=== PATIENT | male | born 1960 | race Hispanic/Latino ===

== ENCOUNTER 2021-09-10 09:44 | Inpatient (IN) | payer OTHER ==
[~2021-09-10] VITALS: Ht 182.9 cm; Wt 105.0 kg
[2021-09-10 10:43] LABS: BASOPHILS % (AUTO) 0.6 % (0.0-5.0); EOSINOPHILS % (AUTO) 0.9 % (0.0-8.0); HEMATOCRIT 47.4 % (42-54); LYMPHOCYTES % (AUTO) 8.2 % (21.0-51.0); MEAN CORPUSCULAR HEMOGLOBIN 27.1 pg (27.0-33.0); MEAN CORPUSCULAR HGB CONC 30.8 g/dL (32.0-36.0); MEAN CORPUSCULAR VOLUME 88.1 fL (79-99); NUCLEATED RED BLOOD CELLS 0.5 % (0.0-0.19); PLATELET COUNT (AUTO) 160 K/uL (130-400); RED BLOOD CELL COUNT(AUTO) 5.38 MIL/uL (4.50-6.20); WHITE BLOOD COUNT (AUTO) 6.3 K/uL (4.8-10.8)
[2021-09-10 10:53] LABS: INR 1.27 (0.85-1.15); PROTHROMBIN TIME 13.5 SEC (9.6-11.6)
[2021-09-10 10:55] LABS: PARTIAL THROMBOPLASTIN TIME 28.2 SEC (26.3-35.5)
[2021-09-10 11:17] LABS: ALBUMIN 2.8 g/dL (3.5-5.0); CREATININE 3.4 mg/dL (0.5-1.5); POTASSIUM 4.2 mmol/L (3.5-5.1); TOTAL PROTEIN, SERUM 7.5 g/dL (6.0-8.3)
[2021-09-10 11:19] LABS: B-TYPE NATRIURETIC PEPTIDE 1140 pg/mL (0-100)
[2021-09-10] MEDS: FUROSEMIDE 100MG VIAL IV SCH (11:35)
[2021-09-10] MEDS ORDERED: CEFAZOLIN SODIUM 1 GM VIAL IVP SCH (12:30)
[2021-09-10] MEDS ORDERED: 0.9%NACL 50ML 50 ML IV ONE (13:27)
[2021-09-10 13:43] LABS: APPEARANCE,URINE Cloudy (CLEAR); BILIRUBIN,URINE Negative (NEGATIVE); COLOR,URINE Dark Yellow (YELLOW); GLUCOSE, URINE (UA) TRACE mg/dL (NEGATIVE); KETONES,URINE Negative (NEGATIVE); LEUKOCYTE ESTERASE ,URINE Trace (NEGATIVE); NITRATE,URINE Negative (NEGATIVE); OCCULT BLOOD,URINE Negative (NEGATIVE); PROTEIN,URINE >=1000 mg/dL (NEGATIVE); UROBILINOGEN,URINE 0.2 mg/dL (0.2-1.0)
[2021-09-10 13:44] LABS: CREATININE,URINE RANDOM 86 mg/dL (30-135); SODIUM,URINE RANDOM 63 mmol/l (40-220)
[2021-09-10 13:51] LABS: RBC,URINE 0-1 /HPF (0-1)
[2021-09-10 13:52] LABS: BACTERIA,URINE Rare /HPF (None Seen); SQUAMOUS EPITHELIAL CELL,UR Rare /HPF (0-2)
[2021-09-10 13:53] LABS: ABG BASE EXCESS -3.7 mmol/L (-2.0-3.0); ABG HCO3 21.9 mmol/L (21.0-28.0); ABG OXYGEN SATURATION 91.4 % (95.0-99.0); ABG PCO2 42 mmHg (35-48)
[2021-09-10] MEDS: BUMETANIDE 1MG/4ML VIAL IVP SCH ×2 (14:51→22:09)
[2021-09-10] MEDS ORDERED: METOLAZONE 2.5 MG TABLET PO SCH (15:30)
[2021-09-10] MEDS ORDERED: ACETAMINOPHEN 325 MG TAB PO PRN (15:30)
[2021-09-10] MEDS ORDERED: IPRATROPIUM 0.5 MG/2.5 ML INH IH PRN (15:30)
[2021-09-10 19:54] LABS: CREATININE 3.3 mg/dL (0.5-1.5); MAGNESIUM 2.5 mg/dL (1.80-2.40); PHOSPHORUS 5.4 mg/dL (2.5-4.9); POTASSIUM 4.4 mmol/L (3.5-5.1)
[2021-09-10 21:20] VITALS: BP 143/97
[2021-09-10] MEDS: CEFTRIAXONE 1G VIAL IVP SCH (21:49)
[2021-09-10] MEDS: CARVEDILOL 3.125 MG TABLET PO SCH (21:50)
[2021-09-11] VITALS: BP 161/99
[2021-09-11 04:00] VITALS: BP 160/97
[2021-09-11] MEDS: BUMETANIDE 1MG/4ML VIAL IVP SCH ×3 (05:41→22:06)
[2021-09-11 08:00] VITALS: BP 156/97
[2021-09-11] MEDS: CARVEDILOL 3.125 MG TABLET PO SCH ×2 (08:52→20:50)
[2021-09-11] MEDS ORDERED: ASPIRIN 81 MG EC TAB PO SCH (09:00)
[2021-09-11 09:18] LABS: ABG BASE EXCESS -1.7 mmol/L (-2.0-3.0); ABG HCO3 22.6 mmol/L (21.0-28.0); ABG OXYGEN SATURATION 93.6 % (95.0-99.0); ABG PCO2 37 mmHg (35-48)
[2021-09-11] MEDS: FUROSEMIDE 100MG VIAL IV SCH (10:30)
[2021-09-11 12:00] VITALS: BP 150/72
[2021-09-11] MEDS: MUPIROCIN OINTMENT 22 GM TUBE TP SCH (14:00)
[2021-09-11] MEDS: PANTOPRAZOLE 40 MG TAB DR PO SCH (14:04)
[2021-09-11 16:00] VITALS: BP 165/90
[2021-09-11 19:32] LABS: PROTEIN,URINE RANDOM 499.9 mg/dL (0-11.9)
[2021-09-11 20:00] VITALS: BP 163/87
[2021-09-11] MEDS: CEFTRIAXONE 1G VIAL IVP SCH (20:50)
[2021-09-11] MEDS: TAMSULOSIN HCL 0.4 MG CAP.ER.24H PO SCH (22:09)
[2021-09-12 00:06] VITALS: BP 142/95
[2021-09-12 04:28] VITALS: BP 133/90
[2021-09-12 04:30] LABS: INR 1.33 (0.85-1.15); PROTHROMBIN TIME 14.1 SEC (9.6-11.6)
[2021-09-12] MEDS: BUMETANIDE 1MG/4ML VIAL IVP SCH ×3 (05:46→22:00)
[2021-09-12 07:40] VITALS: BP 152/96
[2021-09-12] MEDS: CARVEDILOL 3.125 MG TABLET PO SCH ×2 (09:34→21:05)
[2021-09-12] MEDS: PANTOPRAZOLE 40 MG TAB DR PO SCH (09:34)
[2021-09-12] MEDS: MUPIROCIN OINTMENT 22 GM TUBE TP SCH (09:35)
[2021-09-12 11:40] VITALS: BP 126/87
[2021-09-12 15:30] VITALS: BP 167/99
[2021-09-12] MEDS ORDERED: LIDOCAINE HCL-MPF 1% 2ML VIAL ONE (15:59)
[2021-09-12 20:00] VITALS: BP 136/79
[2021-09-12] MEDS: TAMSULOSIN HCL 0.4 MG CAP.ER.24H PO SCH (21:05)
[2021-09-12] MEDS: CEFTRIAXONE 1G VIAL IVP SCH (21:05)
[2021-09-13] VITALS (7 sets, daily range): BP systolic 130–141; BP diastolic 77–97
[2021-09-13 04:17] LABS: HEMATOCRIT 42.4 % (42-54); MEAN CORPUSCULAR HEMOGLOBIN 27.1 pg (27.0-33.0); MEAN CORPUSCULAR HGB CONC 31.6 g/dL (32.0-36.0); MEAN CORPUSCULAR VOLUME 85.8 fL (79-99); RED BLOOD CELL COUNT(AUTO) 4.94 MIL/uL (4.50-6.20); RED CELL DISTRIBUTION WIDTH 16.2 % (11.0-15.5); WHITE BLOOD COUNT (AUTO) 6.2 K/uL (4.8-10.8)
[2021-09-13 04:31] LABS: ALBUMIN 2.5 g/dL (3.5-5.0); BILIRUBIN,TOTAL 0.7 mg/dL (0.2-1.0); CREATININE 3.6 mg/dL (0.5-1.5); MAGNESIUM 2.2 mg/dL (1.80-2.40); PHOSPHORUS 5.4 mg/dL (2.5-4.9); POTASSIUM 4.1 mmol/L (3.5-5.1); TOTAL PROTEIN, SERUM 6.9 g/dL (6.0-8.3)
[2021-09-13] MEDS: BUMETANIDE 1MG/4ML VIAL IVP SCH ×3 (06:20→20:43)
[2021-09-13] MEDS: PANTOPRAZOLE 40 MG TAB DR PO SCH (09:02)
[2021-09-13] MEDS: CARVEDILOL 3.125 MG TABLET PO SCH ×2 (09:02→20:45)
[2021-09-13] MEDS: MUPIROCIN OINTMENT 22 GM TUBE TP SCH (09:06)
[2021-09-13] MEDS ORDERED: TRAZODONE HCL 50 MG TAB PO SCH (20:30)
[2021-09-13] MEDS: CEFTRIAXONE 1G VIAL IVP SCH (20:43)
[2021-09-13] MEDS: TAMSULOSIN HCL 0.4 MG CAP.ER.24H PO SCH (20:43)
[2021-09-14 03:29] VITALS: BP 130/85
[2021-09-14 04:11] LABS: HEMATOCRIT 40.5 % (42-54); MEAN CORPUSCULAR HEMOGLOBIN 27.1 pg (27.0-33.0); MEAN CORPUSCULAR HGB CONC 31.1 g/dL (32.0-36.0); MEAN CORPUSCULAR VOLUME 87.1 fL (79-99); NUCLEATED RED BLOOD CELLS 0.3 % (0.0-0.19); RED BLOOD CELL COUNT(AUTO) 4.65 MIL/uL (4.50-6.20); RED CELL DISTRIBUTION WIDTH 16.2 % (11.0-15.5); WHITE BLOOD COUNT (AUTO) 5.9 K/uL (4.8-10.8)
[2021-09-14 04:18] LABS: CREATININE 3.6 mg/dL (0.5-1.5); PHOSPHORUS 5.2 mg/dL (2.5-4.9); POTASSIUM 3.7 mmol/L (3.5-5.1)
[2021-09-14] MEDS: BUMETANIDE 1MG/4ML VIAL IVP SCH ×3 (06:19→20:23)
[2021-09-14 07:52] VITALS: BP 137/91
[2021-09-14] MEDS: PANTOPRAZOLE 40 MG TAB DR PO SCH (08:32)
[2021-09-14] MEDS: CARVEDILOL 3.125 MG TABLET PO SCH ×2 (08:33→20:24)
[2021-09-14] MEDS: MUPIROCIN OINTMENT 22 GM TUBE TP SCH (09:21)
[2021-09-14 11:20] VITALS: BP 136/91
[2021-09-14] MEDS ORDERED: LACTULOSE 20 GM/30 ML UDCUP PO ONE (16:00)
[2021-09-14 16:10] VITALS: BP 125/87
[2021-09-14] MEDS: LUBIPROSTONE 24 MCG CAP PO SCH (17:44)
[2021-09-14 19:30] VITALS: BP 121/91
[2021-09-14] MEDS: CEFTRIAXONE 1G VIAL IVP SCH (20:23)
[2021-09-14] MEDS: ZOLPIDEM TARTRATE 5 MG TAB PO SCH (20:24)
[2021-09-14] MEDS: TAMSULOSIN HCL 0.4 MG CAP.ER.24H PO SCH (20:24)
[2021-09-14] MEDS: LACTULOSE 20 GM/30 ML UDCUP PO SCH (20:30)
[2021-09-14 23:36] VITALS: BP 112/75
[2021-09-15] VITALS (15 sets, daily range): BP systolic 115–140; BP diastolic 74–93
[2021-09-15 04:45] LABS: HEMATOCRIT 40.7 % (42-54); MEAN CORPUSCULAR HEMOGLOBIN 27.5 pg (27.0-33.0); MEAN CORPUSCULAR HGB CONC 32.2 g/dL (32.0-36.0); MEAN CORPUSCULAR VOLUME 85.3 fL (79-99); PLATELET COUNT (AUTO) 110 K/uL (130-400); RED BLOOD CELL COUNT(AUTO) 4.77 MIL/uL (4.50-6.20)
[2021-09-15 04:57] LABS: INR 1.27 (0.85-1.15); PROTHROMBIN TIME 13.5 SEC (9.6-11.6)
[2021-09-15 04:58] LABS: PARTIAL THROMBOPLASTIN TIME 32.4 SEC (26.3-35.5)
[2021-09-15 05:08] LABS: ALBUMIN 2.5 g/dL (3.5-5.0); BILIRUBIN,TOTAL 0.7 mg/dL (0.2-1.0); CREATININE 3.6 mg/dL (0.5-1.5); MAGNESIUM 1.9 mg/dL (1.80-2.40); PHOSPHORUS 4.6 mg/dL (2.5-4.9); POTASSIUM 3.8 mmol/L (3.5-5.1); TOTAL PROTEIN, SERUM 6.9 g/dL (6.0-8.3)
[2021-09-15 05:27] LABS: BAND NEUTROPHILS % (MANUAL) 1 % (0-2); BASOPHILS % (MANUAL) 2 % (0-2); EOSINOPHILS % (MANUAL) 1 % (1-6); LYMPHOCYTES % (MANUAL) 16 % (22-44); MAN.DIFF COMMENT-IMPRESSION MANUAL DIFFERENTIAL; MONOCYTES % (MANUAL) 10 % (2-9); PLATELET MORPHOLOGY COMMENT ADEQUATE; SEGMENTED NEUTROPHILS % 70 % (40-70)
[2021-09-15] MEDS: LACTULOSE 20 GM/30 ML UDCUP PO SCH (06:00)
[2021-09-15] MEDS: BUMETANIDE 1MG/4ML VIAL IVP SCH ×3 (06:28→21:12)
[2021-09-15] MEDS ORDERED: LACTULOSE 20 GM/30 ML UDCUP PO PRN (07:30)
[2021-09-15] MEDS: LUBIPROSTONE 24 MCG CAP PO SCH (08:00)
[2021-09-15] MEDS ORDERED: LIDOCAINE HCL MPF 1% 5ML VIAL ONE (08:38)
[2021-09-15] MEDS: PANTOPRAZOLE 40 MG TAB DR PO SCH (08:51)
[2021-09-15] MEDS: MUPIROCIN OINTMENT 22 GM TUBE TP SCH (08:53)
[2021-09-15] MEDS: CARVEDILOL 3.125 MG TABLET PO SCH ×2 (08:53→20:14)
[2021-09-15 15:50] LABS: APPEARANCE BODY FLUID BLOODY (CLEAR); COLOR,BODY FLUID RED (LT YELLOW); SPECIMENTYPE,BODY FLUID PLEURAL
[2021-09-15 15:51] LABS: BODY FLUID WBC 205 /cu. mm.; TOTAL VOLUME,BODY FLUID 1500 mL
[2021-09-15 15:52] LABS: BODY FLUID RBC 140625 /cu. mm.
[2021-09-15 15:56] LABS: BF LYMPHOCYTE 8 %; BF MONOCYTE 3 %
[2021-09-15] MEDS: TAMSULOSIN HCL 0.4 MG CAP.ER.24H PO SCH (20:14)
[2021-09-15] MEDS: CEFTRIAXONE 1G VIAL IVP SCH (20:14)
[2021-09-15] MEDS: FAMOTIDINE 20MG TAB PO SCH (20:14)
[2021-09-15] MEDS: ZOLPIDEM TARTRATE 5 MG TAB PO SCH (21:12)
[2021-09-16] VITALS: BP 135/90
[2021-09-16 04:00] VITALS: BP 135/90
[2021-09-16] MEDS: BUMETANIDE 1MG/4ML VIAL IVP SCH (05:56)
[2021-09-16 08:03] VITALS: BP 142/90
[2021-09-16] MEDS: FAMOTIDINE 20MG TAB PO SCH ×2 (08:48→20:26)
[2021-09-16] MEDS: CARVEDILOL 3.125 MG TABLET PO SCH ×2 (08:48→20:26)
[2021-09-16] MEDS: MUPIROCIN OINTMENT 22 GM TUBE TP SCH (08:55)
[2021-09-16 11:36] VITALS: BP 135/90
[2021-09-16 16:31] VITALS: BP 140/94
[2021-09-16 20:00] VITALS: BP 146/98
[2021-09-16] MEDS: TAMSULOSIN HCL 0.4 MG CAP.ER.24H PO SCH (20:26)
[2021-09-16] MEDS ORDERED: BUMETANIDE 1MG/4ML VIAL IVP SCH (21:00)
[2021-09-17] VITALS: BP 121/83
[2021-09-17 04:00] VITALS: BP 135/89
[2021-09-17 04:13] LABS: HEMATOCRIT 38.5 % (42-54); MEAN CORPUSCULAR HEMOGLOBIN 27.4 pg (27.0-33.0); MEAN CORPUSCULAR HGB CONC 32.2 g/dL (32.0-36.0); RED BLOOD CELL COUNT(AUTO) 4.53 MIL/uL (4.50-6.20); RED CELL DISTRIBUTION WIDTH 15.7 % (11.0-15.5); WHITE BLOOD COUNT (AUTO) 5.9 K/uL (4.8-10.8)
[2021-09-17 04:45] LABS: CREATININE 3.3 mg/dL (0.5-1.5); MAGNESIUM 1.7 mg/dL (1.80-2.40); PHOSPHORUS 4.1 mg/dL (2.5-4.9); POTASSIUM 3.1 mmol/L (3.5-5.1)
[2021-09-17 07:25] VITALS: BP 119/74
[2021-09-17] MEDS ORDERED: FUROSEMIDE 80 MG TABLET PO SCH (09:00)
[2021-09-17] MEDS: CARVEDILOL 3.125 MG TABLET PO SCH (09:07)
[2021-09-17] MEDS: MUPIROCIN OINTMENT 22 GM TUBE TP SCH (09:08)
[2021-09-17] MEDS: FAMOTIDINE 20MG TAB PO SCH (09:08)
[2021-09-17 11:25] VITALS: BP 130/82
[2021-09-17] MEDS ORDERED: FURO80TA3 PO (13:34)
[2021-09-17] MEDS ORDERED: MUPI22OI2 TP (13:34)
[2021-09-17] MEDS ORDERED: TAMS-1 PO (13:34)
[2021-09-17] MEDS ORDERED: CARV3.1262 PO (13:34)
[2021-09-17 16:20] VITALS: BP 131/88
[2021-09-17 16:53] LABS: HEPATITIS A IGM ANTIBODY Non-Reactive (Negative); HEPATITIS B CORE IGM ANTIBODY Non-Reactive (Negative); HEPATITIS C ANTIBODY Non-Reactive (NEGATIVE)
[2021-09-17 17:01] LABS: HEPATITIS B SURFACE ANTIGEN Non-Reactive (Negative)
== END 2021-09-17 18:47 | DRG 291 ==
LOC: EDH 09:44 → EDHIP 09:45 → 4DH 20:56
PROVIDERS: ADMIT Internal Medicine; ATTEND Internal Medicine
PROC: 0W993ZZ Drainage of Right Pleural Cavity, Percutaneous Approach (ICD-10-PCS; 2021-09-12)
PROC: 0W993ZZ Drainage of Right Pleural Cavity, Percutaneous Approach (ICD-10-PCS; principal; 2021-09-15)
DX: I13.0 Hypertensive heart and chronic kidney disease with heart failure and stage 1 through stage 4 chronic kidney disease, or unspecified chronic kidney disease (principal); I50.23 Acute on chronic systolic (congestive) heart failure; J96.01 Acute respiratory failure with hypoxia; E43 Unspecified severe protein-calorie malnutrition; N17.9 Acute kidney failure, unspecified; N18.4 Chronic kidney disease, stage 4 (severe); J91.8 Pleural effusion in other conditions classified elsewhere; Z20.822 Contact with and (suspected) exposure to COVID-19; I42.9 Cardiomyopathy, unspecified; I48.0 Paroxysmal atrial fibrillation; E11.22 Type 2 diabetes mellitus with diabetic chronic kidney disease; E78.5 Hyperlipidemia, unspecified; E66.9 Obesity, unspecified; E78.00 Pure hypercholesterolemia, unspecified; R31.9 Hematuria, unspecified; I25.10 Atherosclerotic heart disease of native coronary artery without angina pectoris; E11.51 Type 2 diabetes mellitus with diabetic peripheral angiopathy without gangrene; N13.9 Obstructive and reflux uropathy, unspecified; E11.21 Type 2 diabetes mellitus with diabetic nephropathy; S80.819A Abrasion, unspecified lower leg, initial encounter; X58.XXXA Exposure to other specified factors, initial encounter; Z79.899 Other long term (current) drug therapy; Z95.5 Presence of coronary angioplasty implant and graft; Z86.73 Personal history of transient ischemic attack (TIA), and cerebral infarction without residual deficits; R54 Age-related physical debility; Z99.3 Dependence on wheelchair; Z68.35 Body mass index [BMI] 35.0-35.9, adult; Z91.19 Patient's noncompliance with other medical treatment and regimen; Y93.89 Activity, other specified; Y92.89 Other specified places as the place of occurrence of the external cause; Y99.8 Other external cause status
CPT/HCPCS: 32555; 36415; 36600; 70450; 71045; 71250; 74176; 76700; 76770; 78582; 80048; 80053; 80061; 80074; 81001; 82435; 82570; 82803; 82945; 82947; 82948; 83605; 83615; 83735; 83880; 83986; 84100; 84132; 84145; 84156; 84157; 84295; 84300; 84484; 84540; 85018; 85025; 85027; 85610; 85651; 85730; 86038; 86140; 86160; 86215; 86235; 87040; 87071; 87088; 87116; 87205; 87206; 87635; 87804; 89051; 92610; 93005; 93306; 93356; 93970; 97039; A9540; A9558; C1729; G0378; J0690; J0696; J1940; J3490

== ENCOUNTER → 2021-10-14 | Outpatient (CLI) | payer OTHER ==
[~2021-10-14] MED LIST: CARV3.1262 PO; FURO80TA3 PO; LIDOCAINE HCL 4% LTA SOL 4 ML VIAL TP ONE; MUPI22OI2 TP; TAMS-1 PO
== END | disposition home or self-care (01) ==
LOC: WHH 08:09
PROVIDERS: ATTEND Family Medicine
DX: E11.621 Type 2 diabetes mellitus with foot ulcer (principal); L97.515 Non-pressure chronic ulcer of other part of right foot with muscle involvement without evidence of necrosis; S81.802A Unspecified open wound, left lower leg, initial encounter; S81.801A Unspecified open wound, right lower leg, initial encounter; S81.002A Unspecified open wound, left knee, initial encounter; S91.101A Unspecified open wound of right great toe without damage to nail, initial encounter; E11.40 Type 2 diabetes mellitus with diabetic neuropathy, unspecified; E11.51 Type 2 diabetes mellitus with diabetic peripheral angiopathy without gangrene; E11.22 Type 2 diabetes mellitus with diabetic chronic kidney disease; I13.0 Hypertensive heart and chronic kidney disease with heart failure and stage 1 through stage 4 chronic kidney disease, or unspecified chronic kidney disease; N18.4 Chronic kidney disease, stage 4 (severe); I50.22 Chronic systolic (congestive) heart failure; E78.5 Hyperlipidemia, unspecified; I25.10 Atherosclerotic heart disease of native coronary artery without angina pectoris; E78.00 Pure hypercholesterolemia, unspecified; E66.9 Obesity, unspecified; Z68.27 Body mass index [BMI] 27.0-27.9, adult; Z86.73 Personal history of transient ischemic attack (TIA), and cerebral infarction without residual deficits; Z95.5 Presence of coronary angioplasty implant and graft; Z79.899 Other long term (current) drug therapy; W19.XXXA Unspecified fall, initial encounter; Y93.89 Activity, other specified; Y92.89 Other specified places as the place of occurrence of the external cause; Y99.8 Other external cause status
CPT/HCPCS: 11042; A4450; A6209

== ENCOUNTER → 2021-10-21 | Outpatient (CLI) | payer OTHER | END | disposition home or self-care (01) | LOC: WHH 09:36 | PROVIDERS: ATTEND Family Medicine | DX: E11.621 Type 2 diabetes mellitus with foot ulcer (principal); L97.515 Non-pressure chronic ulcer of other part of right foot with muscle involvement without evidence of necrosis; S81.802D Unspecified open wound, left lower leg, subsequent encounter; S81.801D Unspecified open wound, right lower leg, subsequent encounter; S81.002D Unspecified open wound, left knee, subsequent encounter; S91.101D Unspecified open wound of right great toe without damage to nail, subsequent encounter; E11.40 Type 2 diabetes mellitus with diabetic neuropathy, unspecified; E11.51 Type 2 diabetes mellitus with diabetic peripheral angiopathy without gangrene; E11.22 Type 2 diabetes mellitus with diabetic chronic kidney disease; I13.0 Hypertensive heart and chronic kidney disease with heart failure and stage 1 through stage 4 chronic kidney disease, or unspecified chronic kidney disease; N18.4 Chronic kidney disease, stage 4 (severe); I50.22 Chronic systolic (congestive) heart failure; E78.5 Hyperlipidemia, unspecified; I25.10 Atherosclerotic heart disease of native coronary artery without angina pectoris; E78.00 Pure hypercholesterolemia, unspecified; E66.9 Obesity, unspecified; Z68.27 Body mass index [BMI] 27.0-27.9, adult; Z86.73 Personal history of transient ischemic attack (TIA), and cerebral infarction without residual deficits; Z95.5 Presence of coronary angioplasty implant and graft; Z79.899 Other long term (current) drug therapy; W19.XXXD Unspecified fall, subsequent encounter | CPT/HCPCS: 11042 ==

== ENCOUNTER 2021-12-29 00:28 | Inpatient (IN) | payer OTHER ==
[~2021-12-29] VITALS: Ht 182.9 cm; Wt 105.1 kg
[~2021-12-29 00:28] MED LIST changes: -LIDOCAINE HCL 4% LTA SOL 4 ML VIAL TP ONE
[2021-12-29 01:03] LABS: BASOPHILS % (AUTO) 1.2 % (0.0-5.0); EOSINOPHILS % (AUTO) 2.6 % (0.0-8.0); HEMATOCRIT 47.1 % (42-54); LYMPHOCYTES % (AUTO) 15.4 % (21.0-51.0); MEAN CORPUSCULAR HEMOGLOBIN 26.3 pg (27.0-33.0); MEAN CORPUSCULAR HGB CONC 32.1 g/dL (32.0-36.0); MEAN CORPUSCULAR VOLUME 81.9 fL (79-99); MONOCYTES % (AUTO) 11.6 % (3.0-13.0); NEUTROPHILS % (AUTO) 68.9 % (40.0-77.0); PLATELET COUNT (AUTO) 180 K/uL (130-400); RED BLOOD CELL COUNT(AUTO) 5.75 MIL/uL (4.50-6.20); RED CELL DISTRIBUTION WIDTH 20.4 % (11.0-15.5); WHITE BLOOD COUNT (AUTO) 7.7 K/uL (4.8-10.8)
[2021-12-29 01:11] LABS: CREATININE 2.4 mg/dL (0.5-1.5); POTASSIUM 3.5 mmol/L (3.5-5.1)
[2021-12-29 01:16] LABS: ALBUMIN 2.4 g/dL (3.5-5.0); TOTAL PROTEIN, SERUM 6.9 g/dL (6.0-8.3)
[2021-12-29] MEDS ORDERED: FUROSEMIDE 40MG VIAL IV ONE (01:30)
[2021-12-29 02:16] LABS: B-TYPE NATRIURETIC PEPTIDE 2580 pg/mL (0-100)
[2021-12-29] MEDS ORDERED: ACETAMINOPHEN 325 MG TAB PO PRN ×2 (02:30)
[2021-12-29] MEDS ORDERED: DIPHENHYDRAMINE HCL 25 MG CAPSULE PO PRN (02:30)
[2021-12-29] MEDS ORDERED: ONDANSETRON 4MG INJ IV PRN (02:30)
[2021-12-29] MEDS ORDERED: LACTULOSE 20 GM/30 ML UDCUP PO PRN (02:30)
[2021-12-29] MEDS ORDERED: MAG/ALUM/SIMETH 30 ML UDCUP PO PRN (02:30)
[2021-12-29] MEDS ORDERED: DiphenhydrAMINE HCL 50 MG/ML VIAL IV PRN (02:30)
[2021-12-29] MEDS ORDERED: HYDRALAZINE 20MG/ML VIAL IV PRN (02:30)
[2021-12-29] MEDS ORDERED: HYDROCODONE/ACETAMINOPHEN 5/325 MG TAB PO PRN ×2 (02:30→10:00)
[2021-12-29] MEDS ORDERED: MORPHINE 4 MG SYG IV PRN (02:30)
[2021-12-29 02:52] LABS: CHOLESTEROL 108 mg/dL (<200); HDL CHOLESTEROL 34 mg/dL (29-71); LDL DIRECT 57 mg/dL (0-99); TRIGLYCERIDES 85 mg/dL (30-200)
[2021-12-29 02:57] LABS: HEMOGLOBIN A1C 6.9 % (4.0-6.0)
[2021-12-29 03:16] LABS: APPEARANCE,URINE CLEAR (CLEAR); BILIRUBIN,URINE SMALL (NEGATIVE); COLOR,URINE YELLOW (YELLOW); GLUCOSE, URINE (UA) 250 mg/dL (NEGATIVE); KETONES,URINE NEGATIVE (NEGATIVE); LEUKOCYTE ESTERASE ,URINE NEGATIVE (NEGATIVE); NITRATE,URINE NEGATIVE (NEGATIVE); OCCULT BLOOD,URINE MODERATE (NEGATIVE); PH,URINE 5.5 (5.0-8.0); PROTEIN,URINE >=300 mg/dL (NEGATIVE); UROBILINOGEN,URINE 0.2 mg/dL (0.2-1.0)
[2021-12-29 03:25] LABS: BACTERIA,URINE None Seen /HPF (None Seen); MUCUS,URINE Rare LPF (None Seen); RBC,URINE 0-1 /HPF (0-1); SQUAMOUS EPITHELIAL CELL,UR Rare /HPF (0-2); WBC,URINE 0-1 /HPF (0-1); YEAST,URINE BUDDING None Seen /HPF (None Seen)
[2021-12-29] MEDS ORDERED: TETANUS/DIPHTHERIA TOXOID [ADULT] 0.5 ML VIAL IM ONE (03:30)
[2021-12-29 03:32] VITALS: BP 144/102
[2021-12-29] MEDS: INSULIN HUMULIN R 100 UNIT/ML 3ML SQ SCH ×4 (06:24→21:00)
[2021-12-29 07:58] VITALS: BP 156/110
[2021-12-29] MEDS ORDERED: CARVEDILOL 3.125 MG TABLET PO SCH (09:00)
[2021-12-29] MEDS ORDERED: ENOXAPARIN SODIUM 30 MG/0.3 ML SQ SCH (09:00)
[2021-12-29] MEDS: FUROSEMIDE 20MG VIAL IV SCH ×2 (09:05→21:19)
[2021-12-29] MEDS: FAMOTIDINE 20MG TAB PO SCH ×2 (09:05→21:18)
[2021-12-29] MEDS: ASPIRIN 81 MG EC TAB PO SCH (09:07)
[2021-12-29] MEDS ORDERED: TRAMADOL HCL 50 MG TABLET PO PRN ×2 (10:00)
[2021-12-29] MEDS ORDERED: LIDOCAINE 5% TOPICAL PATCH TP SCH (11:00)
[2021-12-29 11:03] VITALS: BP 139/76
[2021-12-29] MEDS ORDERED: NIFEDIPINE ER 30 MG TAB PO SCH (11:30)
[2021-12-29] MEDS: MUPIROCIN OINTMENT 22 GM TUBE TP SCH ×3 (15:48→21:00)
[2021-12-29] MEDS: HONEY 1 APPL/ML TUBE TP SCH (15:48)
[2021-12-29 16:07] VITALS: BP 140/93
[2021-12-29 20:00] VITALS: BP 144/95
[2021-12-29] MEDS: CARVEDILOL 6.25 MG TABLET PO SCH (21:18)
[2021-12-29] MEDS: APIXABAN 5 MG TABLET PO SCH (21:19)
[2021-12-30] VITALS: BP 104/63
[2021-12-30 01:00] LABS: APPEARANCE,URINE CLEAR (CLEAR); BILIRUBIN,URINE NEGATIVE (NEGATIVE); COLOR,URINE YELLOW (YELLOW); GLUCOSE, URINE (UA) 250 mg/dL (NEGATIVE); KETONES,URINE NEGATIVE (NEGATIVE); LEUKOCYTE ESTERASE ,URINE NEGATIVE (NEGATIVE); NITRATE,URINE NEGATIVE (NEGATIVE); OCCULT BLOOD,URINE SMALL (NEGATIVE); PROTEIN,URINE >=300 mg/dL (NEGATIVE); UROBILINOGEN,URINE 0.2 mg/dL (0.2-1.0)
[2021-12-30 01:07] LABS: BACTERIA,URINE Rare /HPF (None Seen); SQUAMOUS EPITHELIAL CELL,UR Moderate /HPF (0-2); WBC,URINE 0-1 /HPF (0-1)
[2021-12-30 04:00] VITALS: BP 105/65
[2021-12-30 05:41] LABS: HEMATOCRIT 40.7 % (42-54); MEAN CORPUSCULAR HEMOGLOBIN 26.5 pg (27.0-33.0); MEAN CORPUSCULAR HGB CONC 32.4 g/dL (32.0-36.0); MEAN CORPUSCULAR VOLUME 81.6 fL (79-99); PLATELET COUNT (AUTO) 168 K/uL (130-400); RED BLOOD CELL COUNT(AUTO) 4.99 MIL/uL (4.50-6.20); RED CELL DISTRIBUTION WIDTH 19.7 % (11.0-15.5); WHITE BLOOD COUNT (AUTO) 6.4 K/uL (4.8-10.8)
[2021-12-30 06:07] LABS: ASPARTATE AMINOTRANSFERASE 11 U/L (10-37); CARBON DIOXIDE 24 mmol/L (21-32); CHLORIDE 108 mmol/L (101-111); CREATININE 2.8 mg/dL (0.5-1.5); GLOMERULAR FILTR. RATE CALC 25 mL/min (>60); GLUCOSE,RANDOM 83 mg/dL (70-105); PHOSPHORUS 3.7 mg/dL (2.5-4.9); POTASSIUM 3.4 mmol/L (3.5-5.1); SODIUM SERUM 142 mmol/L (136-145); TOTAL PROTEIN, SERUM 6.2 g/dL (6.0-8.3); UREA NITROGEN, BLOOD 30 mg/dL (7-18)
[2021-12-30 06:19] LABS: ALANINE AMINOTRANSFERASE < 6 U/L (12-78)
[2021-12-30] MEDS: INSULIN HUMULIN R 100 UNIT/ML 3ML SQ SCH ×4 (06:30→21:00)
[2021-12-30 07:35] LABS: BAND NEUTROPHILS % (MANUAL) 1 % (0-2); BASOPHILS % (MANUAL) 5 % (0-2); EOSINOPHILS % (MANUAL) 1 % (1-6); LYMPHOCYTES % (MANUAL) 17 % (22-44); MONOCYTES % (MANUAL) 6 % (2-9); SEGMENTED NEUTROPHILS % 70 % (40-70)
[2021-12-30 07:36] LABS: MAN.DIFF COMMENT-IMPRESSION MANUAL DIFFERENTIAL
[2021-12-30 07:37] LABS: PLATELET MORPHOLOGY COMMENT ADEQUATE
[2021-12-30 08:00] VITALS: BP 105/68
[2021-12-30] MEDS: ASPIRIN 81 MG EC TAB PO SCH (08:35)
[2021-12-30] MEDS: FAMOTIDINE 20MG TAB PO SCH ×2 (08:35→21:18)
[2021-12-30] MEDS: APIXABAN 5 MG TABLET PO SCH ×2 (08:36→21:18)
[2021-12-30] MEDS: MUPIROCIN OINTMENT 22 GM TUBE TP SCH ×3 (08:37→21:21)
[2021-12-30] MEDS: HONEY 1 APPL/ML TUBE TP SCH (08:37)
[2021-12-30] MEDS: FINASTERIDE 5 MG TABLET PO SCH (08:37)
[2021-12-30] MEDS: CARVEDILOL 6.25 MG TABLET PO SCH ×2 (08:37→21:19)
[2021-12-30] MEDS ORDERED: NIFEDIPINE ER 30 MG TAB PO SCH (09:00)
[2021-12-30] MEDS ORDERED: ATOR40TA69 PO (11:03)
[2021-12-30 11:41] VITALS: BP 106/75
[2021-12-30 16:00] VITALS: BP 113/80
[2021-12-30 20:00] VITALS: BP 113/80
[2021-12-30] MEDS: TAMSULOSIN HCL 0.4 MG CAP.ER.24H PO SCH (21:19)
[2021-12-31] VITALS (7 sets, daily range): BP systolic 108–141; BP diastolic 71–97
[2021-12-31 04:25] LABS: BASOPHILS % (AUTO) 1.3 % (0.0-5.0); EOSINOPHILS % (AUTO) 4.3 % (0.0-8.0); HEMATOCRIT 41.2 % (42-54); LYMPHOCYTES % (AUTO) 16.3 % (21.0-51.0); MEAN CORPUSCULAR HEMOGLOBIN 26.5 pg (27.0-33.0); MEAN CORPUSCULAR HGB CONC 32.5 g/dL (32.0-36.0); MEAN CORPUSCULAR VOLUME 81.6 fL (79-99); MONOCYTES % (AUTO) 12.6 % (3.0-13.0); NEUTROPHILS % (AUTO) 65.1 % (40.0-77.0); PLATELET COUNT (AUTO) 164 K/uL (130-400); RED BLOOD CELL COUNT(AUTO) 5.05 MIL/uL (4.50-6.20); RED CELL DISTRIBUTION WIDTH 20.1 % (11.0-15.5); WHITE BLOOD COUNT (AUTO) 6.7 K/uL (4.8-10.8)
[2021-12-31 04:36] LABS: CREATININE 2.9 mg/dL (0.5-1.5); MAGNESIUM 1.9 mg/dL (1.80-2.40); POTASSIUM 3.3 mmol/L (3.5-5.1)
[2021-12-31] MEDS: INSULIN HUMULIN R 100 UNIT/ML 3ML SQ SCH ×4 (07:30→21:52)
[2021-12-31] MEDS ORDERED: APIX5TAB PO (09:23)
[2021-12-31] MEDS ORDERED: TAMS-1 PO (09:23)
[2021-12-31] MEDS ORDERED: CARV3.1262 PO (09:23)
[2021-12-31] MEDS ORDERED: FURO40TA5 PO (09:23)
[2021-12-31] MEDS ORDERED: AEC81 PO (09:23)
[2021-12-31] MEDS ORDERED: FINA5TAB2 PO (09:23)
[2021-12-31] MEDS: APIXABAN 5 MG TABLET PO SCH ×2 (09:55→21:49)
[2021-12-31] MEDS: FINASTERIDE 5 MG TABLET PO SCH (09:57)
[2021-12-31] MEDS: CARVEDILOL 6.25 MG TABLET PO SCH ×2 (09:57→21:49)
[2021-12-31] MEDS: ASPIRIN 81 MG EC TAB PO SCH (09:57)
[2021-12-31] MEDS: FAMOTIDINE 20MG TAB PO SCH ×2 (09:57→21:49)
[2021-12-31] MEDS: HONEY 1 APPL/ML TUBE TP SCH (09:58)
[2021-12-31] MEDS: MUPIROCIN OINTMENT 22 GM TUBE TP SCH ×2 (09:59→21:51)
[2021-12-31] MEDS: TAMSULOSIN HCL 0.4 MG CAP.ER.24H PO SCH (21:49)
[2022-01-01 04:21] VITALS: BP 125/85
[2022-01-01 04:35] LABS: HEMATOCRIT 39.9 % (42-54); MEAN CORPUSCULAR HEMOGLOBIN 26.3 pg (27.0-33.0); MEAN CORPUSCULAR HGB CONC 32.6 g/dL (32.0-36.0); MEAN CORPUSCULAR VOLUME 80.8 fL (79-99); PLATELET COUNT (AUTO) 173 K/uL (130-400); RED BLOOD CELL COUNT(AUTO) 4.94 MIL/uL (4.50-6.20); RED CELL DISTRIBUTION WIDTH 19.9 % (11.0-15.5); WHITE BLOOD COUNT (AUTO) 6.1 K/uL (4.8-10.8)
[2022-01-01 04:44] LABS: CREATININE 2.9 mg/dL (0.5-1.5); POTASSIUM 3.7 mmol/L (3.5-5.1)
[2022-01-01 04:55] LABS: LYMPHOCYTES % (MANUAL) 24 % (22-44); MAN.DIFF COMMENT-IMPRESSION MANUAL DIFFERENTIAL; MONOCYTES % (MANUAL) 8 % (2-9); PLATELET MORPHOLOGY COMMENT ADEQUATE; SEGMENTED NEUTROPHILS % 68 % (40-70)
[2022-01-01] MEDS: INSULIN HUMULIN R 100 UNIT/ML 3ML SQ SCH ×3 (06:27→16:03)
[2022-01-01 08:03] VITALS: BP 124/85
[2022-01-01] MEDS: APIXABAN 5 MG TABLET PO SCH (09:36)
[2022-01-01] MEDS: ASPIRIN 81 MG EC TAB PO SCH (09:36)
[2022-01-01] MEDS: FINASTERIDE 5 MG TABLET PO SCH (09:37)
[2022-01-01] MEDS: FAMOTIDINE 20MG TAB PO SCH (09:37)
[2022-01-01] MEDS: HONEY 1 APPL/ML TUBE TP SCH (09:38)
[2022-01-01] MEDS: CARVEDILOL 6.25 MG TABLET PO SCH (09:38)
[2022-01-01] MEDS: MUPIROCIN OINTMENT 22 GM TUBE TP SCH (09:38)
[2022-01-01 10:50] VITALS: BP 125/81
[2022-01-01 15:34] VITALS: BP 127/85
== END 2022-01-01 18:20 | DRG 264 ==
LOC: EDH 00:28 → EDHIP 02:22 → 4BH 03:32
PROVIDERS: ADMIT Internal Medicine; ATTEND Internal Medicine
PROC: 0JBQ0ZZ Excision of Right Foot Subcutaneous Tissue and Fascia, Open Approach (ICD-10-PCS; principal; 2021-12-29)
DX: I13.0 Hypertensive heart and chronic kidney disease with heart failure and stage 1 through stage 4 chronic kidney disease, or unspecified chronic kidney disease (principal); I50.43 Acute on chronic combined systolic (congestive) and diastolic (congestive) heart failure; E43 Unspecified severe protein-calorie malnutrition; N18.4 Chronic kidney disease, stage 4 (severe); N17.9 Acute kidney failure, unspecified; E11.22 Type 2 diabetes mellitus with diabetic chronic kidney disease; I25.5 Ischemic cardiomyopathy; S80.211A Abrasion, right knee, initial encounter; S80.212A Abrasion, left knee, initial encounter; E87.6 Hypokalemia; E11.621 Type 2 diabetes mellitus with foot ulcer; E11.51 Type 2 diabetes mellitus with diabetic peripheral angiopathy without gangrene; N40.0 Benign prostatic hyperplasia without lower urinary tract symptoms; D64.9 Anemia, unspecified; F10.10 Alcohol abuse, uncomplicated; I25.10 Atherosclerotic heart disease of native coronary artery without angina pectoris; L97.519 Non-pressure chronic ulcer of other part of right foot with unspecified severity; E78.5 Hyperlipidemia, unspecified; W01.0XXA Fall on same level from slipping, tripping and stumbling without subsequent striking against object, initial encounter; Z91.19 Patient's noncompliance with other medical treatment and regimen; Z87.891 Personal history of nicotine dependence; Z86.73 Personal history of transient ischemic attack (TIA), and cerebral infarction without residual deficits; Z83.3 Family history of diabetes mellitus; Z79.899 Other long term (current) drug therapy; Z82.3 Family history of stroke; Z79.01 Long term (current) use of anticoagulants; Z68.31 Body mass index [BMI] 31.0-31.9, adult
CPT/HCPCS: 36415; 71045; 73562; 80048; 80053; 80061; 81001; 82948; 83036; 83735; 83880; 84100; 84145; 84484; 85025; 90714; 93005; 93970; 97039; G0378; J1650; J1815; J1940